=== PATIENT | female | born 1935 | race Hispanic/Latino ===

== ENCOUNTER 2017-11-04 11:04 | Outpatient (CLI) | payer MEDICARE ==
[2017-11-04 11:52] LABS: BUN/Creatinine Ratio 11; Blood Urea Nitrogen 10 mg/dL (7-17); Hemolysis Index 6; Uric Acid 7.7 mg/dL (3.5-7.6)
== END 2017-11-04 11:05 | disposition home or self-care (01) ==
LOC: LAB 11:04
PROVIDERS: ATTEND Internal Medicine Nephrology
DX: I10 Essential (primary) hypertension (principal); E78.5 Hyperlipidemia, unspecified; E03.9 Hypothyroidism, unspecified; N39.0 Urinary tract infection, site not specified; R94.4 Abnormal results of kidney function studies
CPT/HCPCS: 36415; 80048; 82040; 83930; 83935; 84100; 84443; 84550

== ENCOUNTER 2017-11-10 11:02 | Outpatient (CLI) | payer MEDICARE ==
[2017-11-10 11:37] LABS: Calcium 10.2 mg/dL (8.4-10.2)
--- NOTE | 2017-11-10 20:45 | XRay Report ---
FINAL REPORT PROCEDURE: Chest. TECHNIQUE: PA and lateral views. HISTORY: Orthopnea. COMPARISON: No prior studies are available for comparison. FINDINGS: The heart size is moderately enlarged. The lungs are grossly clear but hyperinflated. There are no pleural effusions. The soft tissues are unremarkable. There is a mild thoracic scoliosis. IMPRESSION: Cardiomegaly and COPD.
== END 2017-11-10 11:03 | disposition home or self-care (01) ==
LOC: LAB 11:02 → XRAY 11:02
DX: I10 Essential (primary) hypertension (principal); I51.7 Cardiomegaly; R94.4 Abnormal results of kidney function studies; R06.01 Orthopnea; M41.84 Other forms of scoliosis, thoracic region
CPT/HCPCS: 36415; 71046; 80048